=== PATIENT | female | born 1955 | race Caucasian/White ===

== ENCOUNTER 2025-05-11 07:30 | Day surgery (SDC) | payer MEDICARE ==
[2025-05-08 11:18] LABS: LEUKOCYTE ESTERASE ,URINE NEGATIVE (Neg); NITRITES, URINE NEGATIVE (Neg); OCCULT BLOOD,URINE NEGATIVE (Neg)
[2025-05-08 11:19] LABS: MEAN PLATELET VOLUME 9.0 FL (7.4-10.4); PRE OP HEMATOCRIT 40.9 % (35.0-45.0); PRE OP HEMOGLOBIN 13.6 g/dL (12.0-16.0); PRE OP PLATELET COUNT 317 X10'3 (140-440); PRE OP WHITE BLOOD COUNT 8.1 10'3 (4.8-10.8); RED CELL DISTRIBUTION WIDTH 14.8 % (11.5-14.5)
[2025-05-08 11:23] LABS: UA COLLECTION TYPE CLN CATCH MIDSTREAM
[2025-05-08 11:25] LABS: MUCUS STRANDS FEW /LPF (Neg); SQUAMOUS EPITHELIAL CELL,UR MODERATE /LPF (FEW)
[2025-05-08 13:52] LABS: CREATININE 0.59 MG/DL (0.40-0.90); PRE OP ALT 21 U/L (30-65); PRE OP ANION GAP 12 (8-16); PRE OP AST 19 U/L (10-37); PRE OP BILIRUB, TOTAL 0.4 MG/DL (0.0-1.0); PRE OP GLUCOSE 95 MG/DL (70-104); PRE OP POTASSIUM 3.6 MMOL/L (3.4-5.1); PRE OP SODIUM 140 MMOL/L (135-145); TOTAL CARBON DIOXIDE 25.4 MMOL/L (24-32); eGFR > 90 ML/MIN
[~2025-05-11] VITALS: Ht 162.6 cm; Wt 59.7 kg
[2025-05-11] MEDS: ceFAZolin 2gm/dext,iso 50mL 50 ML IV ONE (05:30)
[~2025-05-11 07:30] MED LIST: ACYC-128 PO; ALBU1.25 INH; ALBU18HF2 PO; AMLO5TAB16 PO; BUPIVAcaine 2.5mg/ml inj 50ml vial (contains preservative) ONE; CALC-496 PO; LOSA-416 PO; OMEP40CA21 PO; albuterol 2.5 MG/3 ML nebule NEB ONE; bacitracin 15gm ointment TP ONE
[2025-05-11 07:46] VITALS: BP 132/75; PULSE 83; RESP 16; TEMP 97.9; O2SAT 98
[2025-05-11] MEDS: ringers solution, lacted 1,000 ML IV SCH (08:00)
[2025-05-11] MEDS ORDERED: BUPIVAcaine 2.5mg/ml inj 50ml vial (contains preservative) ONE (09:45)
[2025-05-11] MEDS ORDERED: bacitracin 15gm ointment TP ONE (09:45)
[2025-05-11] MEDS ORDERED: ringers solution, lacted 1,000 ML IV SCH (10:20)
[2025-05-11] MEDS ORDERED: acetaminophen 1,000mg/100ml IV 100 ML IV PRN (10:20)
[2025-05-11] MEDS ORDERED: morphine 4 MG/ML inj SYRINge IV PRN (10:20)
[2025-05-11] MEDS ORDERED: hydrALAZINE 20mg/ml inj. IV PRN (10:20)
[2025-05-11] MEDS ORDERED: labetalol 20mg/4ml (5mg/ml) syringe IV PRN (10:20)
[2025-05-11] MEDS ORDERED: ondansetron/PF 4mg/2ml inj IV PRN (10:20)
[2025-05-11] MEDS ORDERED: fentaNYL/PF 50MCG/1 ML 2ML syringe ONE (10:28)
[2025-05-11] MEDS ORDERED: midazolam 1 mg/ML 2ml injection ONE (10:30)
[2025-05-11] MEDS ORDERED: cloNIDine hcl/PF 100mcg/ml inj ONE (10:47)
[2025-05-11] MEDS ORDERED: ePHEDrine 50MG/ML INJ. ONE (10:47)
[2025-05-11] MEDS ORDERED: dexamethasone sod phosphate 4mg/ml inj. ONE (10:53)
[2025-05-11] MEDS ORDERED: ROPIVAcaine 0.5% (5mg/ml) 30ml vial ONE (10:53)
[2025-05-11] MEDS ORDERED: propofol inj 20 ML IV ONE (10:53)
[2025-05-11] MEDS ORDERED: LIDOcaine 2% (20mg/ml) 5ml vial ONE (10:53)
[2025-05-11] MEDS ORDERED: ondansetron/PF 4mg/2ml inj ONE (10:53)
[2025-05-11] MEDS ORDERED: LIDOcaine 1% (10mg/ml)w/preservative inj. 20ml MDV ONE ×2 (10:55→10:56)
[2025-05-11] MEDS: LIDOcaine 1% 30ml preserv. free vial IJ ONE (11:39)
[2025-05-11] MEDS: BUPIVAcaine/PF 2.5 mg/ml (0.25%) 30ml vial IJ ONE (11:39)
[2025-05-11 12:10] VITALS: BP 147/79; PULSE 84; RESP 16; O2SAT 100
[2025-05-11 12:20] VITALS: BP 139/79; PULSE 87; RESP 19; O2SAT 96
[2025-05-11 12:30] VITALS: BP 132/72; PULSE 82; RESP 18; O2SAT 95
[2025-05-11 12:40] VITALS: BP 130/75; PULSE 83; RESP 13; O2SAT 95
--- NOTE | 2025-05-29 17:42 | OPERATIVE REPORT ---
DATE OF SURGERY: 05/11/2025 DICTATING PHYSICIAN: Jyoti Longoria DPM SURGEON: Jyoti Longoria DPM TECHNICAL EXPERT: SENIA Morales Dr.'s assistance was needed for the timely completion of this case ANESTHESIA: General using an LMA and an ankle block performed by the anesthesia provider. HEMOSTASIS: Pneumatic left ankle tourniquet set at 250 mmHg and electrocautery. ESTIMATED BLOOD LOSS: 10 mL. 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 * Complete rupture of the plantar plate. IMPLANTS: Arthrosurface Petra implant for the second MPJ, FiberWire for the plantar plate repair. PROCEDURES PERFORMED: Left second metatarsophalangeal joint petra implant, left second metatarsophalangeal joint plantar plate repair, left second metatarsal hardware removal, left second MTPJ extensor tendon tear repair. COMPLICATIONS: None. COUNTS: Sponge and needle count was correct. INDICATIONS FOR PROCEDURE: The patient is a 70-year-old female who presented to my office for pain and deformity to her left second MTPJ with history of Hemant osteotomy to that digit. She felt she had exhausted conservative treatment including shoe gear changes, taping, bracing, and elected to undergo surgical intervention. The risks, benefits, and alternatives were discussed with the patient at length. All of her questions were answered. She elected to proceed. Her preoperative history and physical were reviewed and there were no obvious contraindications to the proposed surgical plan. Absolutely no guarantees were given or implied. PROCEDURE IN DETAIL: Under mild sedation, the patient was brought into the operating room and placed on the operating room table in the supine position. The anesthesia provider induced general anesthesia and performed a left ankle block for postoperative analgesia. A pneumatic left ankle tourniquet was placed over the patient's left ankle. The left lower extremity was then scrubbed, prepped, and draped in the usual aseptic manner. A timeout was performed confirming the correct patient, procedure, laterality, and perioperative antibiotics. The left lower extremity was elevated and the left ankle tourniquet was inflated to 250 mmHg. LEFT SECOND METATARSAL HARDWARE REMOVAL: Attention was directed to the dorsal second metatarsophalangeal joint where a linear incision was made. Blunt dissection was carried out to the level of the capsule. Care was taken to protect all vital neurovascular structures and any small bleeders were cauterized with electrocautery. Of note, there was no appreciable extensor tendon there. The incision was extended proximally. The proximal stump of the tendon was found. Inspection revealed distal stump of the tendon also present. This was completely torn and ruptured. This likely was contributing to the patient's second metatarsophalangeal joint being stuck in a plantarflexed position. It was determined to later repair this tendon during the case. Sharp dissection was utilized to expose the metatarsal neck. The screw from the previous Hemant osteotomy was noted and this was removed using a needle skidder driver without incident. The hardware was passed to the back table. LEFT SECOND METATARSOPHALANGEAL JOINT PETRA IMPLANT: Attention was then directed to the second metatarsal head where there was noted to be complete loss of articular cartilage and significant osteophytic formation. The osteophytes were resected with a combination of sagittal saw and a rongeur. The incision was irrigated with copious amounts of normal saline. The second metatarsal head was then prepared for implants in the standard technique. The sizers were inserted and confirmed with fluoroscopy, adequate size and position. The implant was then placed in standard fashion without incidence. Fluoroscopy confirmed adequate position and alignment. LEFT SECOND METATARSOPHALANGEAL JOINT PLANTAR PLATE REPAIR: There was noted to be residual transverse plane deformity of the second metatarsophalangeal joint with the second digit deviated towards the hallux. On inspection, there was a complete plantar plate rupture noted. A K-wire was then utilized to create 2 drill holes through the proximal phalanx. FiberLoop suture was then inserted into the medial and lateral aspect of the plantar plate and leaped through. The suture passer was then inserted through the wire drill holes and the FiberLoop was passed through the plantar proximal phalanx to the dorsal aspect of the proximal phalanx. The second metatarsophalangeal joint held in improved alignment in the transverse plane. The FiberLoop was then tied on the dorsal aspect of the second proximal phalanx. There was noted to be excellent stability and alignment of the second metatarsophalangeal joint. LEFT SECOND METATARSOPHALANGEAL JOINT EXTENSOR TENDON REPAIR: Attention was then redirected to the extensor tendon that was noted to be completely ruptured. This was repaired with 3-0 Vicryl in an [id number] fashion. This was needed to hold the second metatarsophalangeal joint in a rectus position without the toe stuck in plantarflexion. The incision was irrigated with copious amounts of normal saline. The incision was then repaired in layers using Vicryl, Monocryl, nylon suture. Prior to closure, the tourniquet was released with immediate hyperemia noted to all digits of the left foot. The incisions were dressed with Betadine-soaked Adaptic followed by 4 x 4 gauze followed by Webril followed by Wes wrap. The patient tolerated the procedure and anesthesia well and was transferred from the operating room to the post-anesthesia care unit with vital signs stable and vascular status intact to all digits of the left foot. After a brief period of postoperative recovery, the patient will be discharged to home with both written and verbal instructions for postoperative recovery. She will follow up with me as scheduled next week. Jyoti Longoria DPM TID: [id number] RECEIPT: [id number] LETTY TOLLIVER
== END 2025-05-11 13:00 | disposition home or self-care (01) ==
LOC: PAS 07:30
PROVIDERS: ATTEND Student in an Organized Health Care Education/Training Program
DX: M20.5X2 Other deformities of toe(s) (acquired), left foot (principal); S96.112A Strain of muscle and tendon of long extensor muscle of toe at ankle and foot level, left foot, initial encounter; M19.072 Primary osteoarthritis, left ankle and foot; M79.672 Pain in left foot; I10 Essential (primary) hypertension; I35.0 Nonrheumatic aortic (valve) stenosis; J44.1 Chronic obstructive pulmonary disease with (acute) exacerbation; K21.9 Gastro-esophageal reflux disease without esophagitis; X58.XXXA Exposure to other specified factors, initial encounter; Y93.89 Activity, other specified; Y92.89 Other specified places as the place of occurrence of the external cause; Y99.8 Other external cause status; Z87.440 Personal history of urinary (tract) infections; Z87.891 Personal history of nicotine dependence; Z90.89 Acquired absence of other organs
CPT/HCPCS: 28208; 28899; 36415; 73620; 76000; 80053; 81001; 82948; 85025; A4618; A6223; A6253; A6402; A6449; A7000; C1713; C1776; J0735; J1100; J1171; J2003; J2250; J2405; J2704; J2795; J3010; J3490; J7030; J7120; L3260; Z7506; Z7508; Z7512; Z7610